=== PATIENT | female | born 1995 | race Caucasian/White ===

== ENCOUNTER 2022-01-10 10:30 | Emergency (ER) | payer OTHER ==
[~2022-01-10] VITALS: Ht 162.6 cm; Wt 81.7 kg
[2022-01-10 11:32] LABS: BASOPHILS ABSOLUTE AUTO 0.06 K/mm3 (0.00-0.23); BASOPHILS PERCENT AUTO 1 % (0-2); EOSINOPHILS ABSOLUTE AUTO 0.13 K/mm3 (0.00-0.68); EOSINOPHILS PERCENT AUTO 2 % (0-6); Hematocrit 36.7 % (33.0-51.0); Hemoglobin 13.2 g/dL (11.5-16.0); IMMATURE GRAN ABSOLUTE AUTO 0.06 K/mm3 (0.00-0.10); IMMATURE GRAN PERCENT AUTO 1 % (0-1); LYMPHOCYTES PERCENT AUTO 24 % (21-46); MONOCYTES ABSOLUTE AUTO 0.75 K/mm3 (0.16-1.47); MONOCYTES PERCENT AUTO 10 % (4-13); Mean Corpuscular HGB 32.5 pg (26.0-34.0); Mean Corpuscular Volume 90 fL (80-100); Mean Platelet Volume 10.8 fL (9.1-12.4); NEUTROPHILS ABSOLUTE AUTO 5.02 K/mm3 (1.96-9.15); NEUTROPHILS PERCENT AUTO 63 % (41-73); Platelet Count 231 K/mm3 (150-400); RDW Coefficient Variation 11.8 % (11.7-14.2); RDW Standard Deviation 39.3 fL (35.1-46.3); Red Blood Cell Count 4.06 M/mm3 (3.80-5.20); White Blood Cell Count 7.92 K/mm3 (4.00-11.30)
[2022-01-10 11:57] LABS: Albumin, Blood 3.9 g/dL (3.4-5.0); Albumin/Globulin Ratio 1.2 (0.8-1.8); Bilirubin, Total 0.6 mg/dL (0.1-1.0); Bun/Creatinine Ratio 13.5 (12.0-20.0); Calcium, Blood 8.6 mg/dL (8.5-10.1); Creatinine, Blood 0.67 mg/dL (0.40-1.00); Globulin, Blood 3.2 g/dL (2.2-4.0); Potassium, Blood 3.9 mmol/L (3.5-5.5); Total Protein, Blood 7.1 g/dL (6.4-8.2)
[2022-01-10] MEDS ORDERED: PRED20 PO (15:19)
[2022-01-10] MEDS ORDERED: Omeprazole20 M1 PO (15:19)
[2022-01-10] MEDS ORDERED: ONDA4ODT MM (15:19)
[2022-01-10] MEDS ORDERED: HYDR1TAB94 PO (15:32)
== END 2022-01-10 15:30 | disposition home or self-care (01) ==
LOC: ER 10:30
PROVIDERS: Physician Assistant
DX: K50.911 Crohn's disease, unspecified, with rectal bleeding (principal); K92.0 Hematemesis
CPT/HCPCS: 80053; 85025; 96374; 99284-25; J2405

== ENCOUNTER 2022-05-28 06:28 | Emergency (ER) | payer OTHER ==
[~2022-05-28] VITALS: Ht 165.1 cm; Wt 117.9 kg
[~2022-05-28 06:28] MED LIST: HYDR1TAB94 PO; ONDA4ODT MM; Omeprazole20 M1 PO; PRED20 PO
[2022-05-28 07:18] LABS: BASOPHILS ABSOLUTE AUTO 0.02 K/mm3 (0.00-0.23); BASOPHILS PERCENT AUTO 0 % (0-2); EOSINOPHILS ABSOLUTE AUTO 0.03 K/mm3 (0.00-0.68); EOSINOPHILS PERCENT AUTO 1 % (0-6); Hematocrit 35.7 % (33.0-51.0); Hemoglobin 13.1 g/dL (11.5-16.0); IMMATURE GRAN ABSOLUTE AUTO 0.04 K/mm3 (0.00-0.10); IMMATURE GRAN PERCENT AUTO 1 % (0-1); LYMPHOCYTES ABSOLUTE AUTO 0.59 K/mm3 (0.84-5.20); LYMPHOCYTES PERCENT AUTO 13 % (21-46); MONOCYTES ABSOLUTE AUTO 0.65 K/mm3 (0.16-1.47); MONOCYTES PERCENT AUTO 14 % (4-13); Mean Corpuscular HGB 33.1 pg (26.0-34.0); Mean Corpuscular HGB Conc 36.7 g/dL (31.5-36.5); Mean Corpuscular Volume 90 fL (80-100); Mean Platelet Volume 10.4 fL (9.1-12.4); NEUTROPHILS ABSOLUTE AUTO 3.33 K/mm3 (1.96-9.15); NEUTROPHILS PERCENT AUTO 72 % (41-73); Platelet Count 228 K/mm3 (150-400); Red Blood Cell Count 3.96 M/mm3 (3.80-5.20); White Blood Cell Count 4.66 K/mm3 (4.00-11.30)
[2022-05-28 07:37] LABS: Albumin, Blood 3.7 g/dL (3.4-5.0); Bilirubin, Total 0.2 mg/dL (0.1-1.0); Bun/Creatinine Ratio 11.1 (12.0-20.0); Calcium, Blood 8.8 mg/dL (8.5-10.1); Creatinine, Blood 0.72 mg/dL (0.40-1.00); Globulin, Blood 3.8 g/dL (2.2-4.0); Potassium, Blood 4.1 mmol/L (3.5-5.5); Total Protein, Blood 7.5 g/dL (6.4-8.2)
[2022-05-28 08:23] LABS: Influenza B, PCR NEGATIVE (NEGATIVE); Resp Syncytial Virus, PCR NEGATIVE (NEGATIVE); SARS-Cov-2 (COVID-19) PCR, MMC NEGATIVE (NEGATIVE)
[2022-05-28 08:25] LABS: Influenza A, PCR POSITIVE (NEGATIVE)
[2022-05-28] MEDS ORDERED: PROM25 PO (10:07)
[2022-05-28] MEDS ORDERED: Tamiflu75 MG PO (10:08)
== END 2022-05-28 10:38 | disposition home or self-care (01) ==
LOC: ER 06:28
PROVIDERS: Student in an Organized Health Care Education/Training Program
DX: J10.1 Influenza due to other identified influenza virus with other respiratory manifestations (principal); Z20.822 Contact with and (suspected) exposure to COVID-19; Z79.899 Other long term (current) drug therapy; Z79.52 Long term (current) use of systemic steroids
CPT/HCPCS: 0241U; 36415; 80053; 83690; 85025; A9270; J1885; J2405; J2550; J7030

== ENCOUNTER → 2023-06-11 | Outpatient (CLI) | payer OTHER ==
[~2023-06-11] MED LIST changes: +PROM25 PO; +Tamiflu75 MG PO
[2023-06-11 17:19] LABS: BASOPHILS ABSOLUTE AUTO 0.09 K/mm3 (0.00-0.23); BASOPHILS PERCENT AUTO 1 % (0-2); EOSINOPHILS ABSOLUTE AUTO 0.22 K/mm3 (0.00-0.68); EOSINOPHILS PERCENT AUTO 3 % (0-6); Hematocrit 38.8 % (33.0-51.0); Hemoglobin 13.3 g/dL (11.5-16.0); IMMATURE GRAN ABSOLUTE AUTO 0.02 K/mm3 (0.00-0.10); IMMATURE GRAN PERCENT AUTO 0 % (0-1); LYMPHOCYTES ABSOLUTE AUTO 2.45 K/mm3 (0.84-5.20); LYMPHOCYTES PERCENT AUTO 32 % (21-46); MONOCYTES ABSOLUTE AUTO 0.64 K/mm3 (0.16-1.47); MONOCYTES PERCENT AUTO 8 % (4-13); Mean Corpuscular HGB Conc 34.3 g/dL (31.5-36.5); Mean Corpuscular Volume 90 fL (80-100); Mean Platelet Volume 10.9 fL (9.1-12.4); NEUTROPHILS ABSOLUTE AUTO 4.34 K/mm3 (1.96-9.15); NEUTROPHILS PERCENT AUTO 56 % (41-73); Platelet Count 257 K/mm3 (150-400); RDW Coefficient Variation 11.4 % (11.7-14.2); RDW Standard Deviation 37.3 fL (35.1-46.3); Red Blood Cell Count 4.29 M/mm3 (3.80-5.20); White Blood Cell Count 7.76 K/mm3 (4.00-11.30)
== END | disposition home or self-care (01) ==
LOC: LAB 15:31 → LAB SHORT 15:31
PROVIDERS: Obstetrics & Gynecology
DX: Z01.812 Encounter for preprocedural laboratory examination (principal)
CPT/HCPCS: 36415; 85025

== ENCOUNTER 2023-06-20 10:46 | Day surgery (SDC) | payer OTHER ==
[~2023-06-20] VITALS: Ht 162.6 cm; Wt 82.2 kg
[2023-06-20] MEDS ORDERED: TRAM50 PO (11:05)
[2023-06-20] MEDS ORDERED: REMIFENTANIL HCL IV (11:07)
[2023-06-20] MEDS ORDERED: RENFLEXIS100 M1 IV (12:32)
--- NOTE | 2023-06-20 13:02 | NUR ---
06/20/23 1302 Luann Alvarado ABDOMINAL AREA PREPPED W/ CHLORAPREP, JOSE AREA PREPPED W/ BETADINE SOLUTION.
[2023-06-20 13:37] VITALS: BP 129/81
== END 2023-06-20 14:39 | disposition home or self-care (01) ==
LOC: ORSCSDS 10:46
PROVIDERS: Obstetrics & Gynecology
PROC: 0UT74ZZ Resection of Bilateral Fallopian Tubes, Percutaneous Endoscopic Approach (ICD-10-PCS; principal; 2023-06-20 12:00)
PROC: 0UPD7HZ Removal of Contraceptive Device from Uterus and Cervix, Via Natural or Artificial Opening (ICD-10-PCS; principal; 2023-06-20 12:00)
DX: Z30.2 Encounter for sterilization (principal); Z30.432 Encounter for removal of intrauterine contraceptive device; F32.9 Major depressive disorder, single episode, unspecified; K50.90 Crohn's disease, unspecified, without complications; E66.9 Obesity, unspecified; Z68.31 Body mass index [BMI] 31.0-31.9, adult; Z79.899 Other long term (current) drug therapy
CPT/HCPCS: 88302; J0171; J1100; J1885; J2250; J2405; J2704; J2765; J2795; J3010

== ENCOUNTER 2023-12-30 01:51 | Day surgery (SDC) | payer OTHER ==
[~2023-12-30 01:51] MED LIST changes: +BUDESONIDE EC3 MG PO; +BUSP15 PO; +CIPR500 PO; +ESCI10 PO; +ESCI20 PO; +Entocort EC 3 mg3 MG PO; +FAMO20 PO; +Flonase 0.05% N16 GM; +HYDCOR2.5C PR; +HYDMOR2 PO; +Hydrocodone-Ap1 EA20 PO; +IBUP800; +IBUP800 PO; +INFLECTRA100 MG IV; +Lialda1.2 GM PO; +MESALAMINE DR400 MG PO; +METR500 PO; +ONDA4 PO; +OXYACE5T PO; +Phenergan25 M1 PO; +Purinethol50 MG GT; +REMIFENTANIL HCL IV; +RENFLEXIS100 M1 IV; +Remicade100 MG IV; +Sulfamethoxazo1 EAC4 PO; +TRAM50 PO; +TRAZ50 PO; +Ultram50 MG PO; +Veetids 500500 MG PO; +Verotin-Gr Cap1 EACH PO; +Vistaril25 MG PO; +Zofran4 MG PO
[2023-12-30] MEDS ORDERED: Ondansetron HCl 2 MG / ML 2ML Vial IV SCH (06:50)
[2023-12-30 14:03] VITALS: BP 123/75
[2023-12-30] MEDS ORDERED: Infliximab-DYYB 400 MG in NS 250 ML IV SCH (14:20)
== END 2023-12-30 16:57 | disposition home or self-care (01) ==
LOC: ATC 01:51
DX: K50.00 Crohn's disease of small intestine without complications (principal); Z79.899 Other long term (current) drug therapy
CPT/HCPCS: 96413; 96415; J7050; Q5103

== ENCOUNTER 2024-02-17 00:40 | Day surgery (SDC) | payer OTHER ==
[~2024-02-17] VITALS: Wt 85.1 kg
[2024-02-17 14:03] VITALS: BP 123/92
[2024-02-17] MEDS ORDERED: Ondansetron HCl 2 MG / ML 2ML Vial IV ONE (14:15)
[2024-02-17] MEDS ORDERED: Infliximab-DYYB 400 MG in NS 250 ML IV SCH (14:15)
== END 2024-02-17 16:34 | disposition home or self-care (01) ==
LOC: ATC 00:40
DX: K50.00 Crohn's disease of small intestine without complications (principal)
CPT/HCPCS: 96375; 96413; 96415; J2405; J7050; Q5103

== ENCOUNTER 2024-04-06 02:06 | Day surgery (SDC) | payer OTHER ==
[~2024-04-06] VITALS: Wt 86.2 kg
[2024-04-06] MEDS ORDERED: Acetaminophen 325 MG TABLET PO PRN (07:25)
[2024-04-06] MEDS ORDERED: LORazepam 1 MG Tab PO SCH (07:25)
[2024-04-06 14:11] VITALS: BP 118/90
[2024-04-06] MEDS ORDERED: MONT10T PO (14:28)
[2024-04-06] MEDS ORDERED: Infliximab-DYYB 400 MG in NS 250 ML IV SCH (14:35)
== END 2024-04-06 17:00 | disposition home or self-care (01) ==
LOC: ATC 02:06
DX: K50.00 Crohn's disease of small intestine without complications (principal); F41.0 Panic disorder [episodic paroxysmal anxiety]; Z79.899 Other long term (current) drug therapy
CPT/HCPCS: 96413; 96415; J7050; Q5103

== ENCOUNTER 2024-05-25 01:36 | Day surgery (SDC) | payer OTHER ==
[~2024-05-25 01:36] MED LIST changes: +MONT10T PO
[2024-05-25 14:07] VITALS: BP 124/56
[2024-05-25] MEDS ORDERED: Infliximab-DYYB 450 MG in NS 250 ML IV SCH (14:20)
== END 2024-05-25 17:04 | disposition home or self-care (01) ==
LOC: ATC 01:36
DX: K50.00 Crohn's disease of small intestine without complications (principal); Z79.899 Other long term (current) drug therapy
CPT/HCPCS: 96413; 96415; J7050; Q5103

== ENCOUNTER 2024-07-13 03:39 | Day surgery (SDC) | payer OTHER ==
[2024-07-13 14:08] VITALS: BP 117/80; BP 117/96
[2024-07-13] MEDS ORDERED: Infliximab-DYYB 400 MG in NS 250 ML IV SCH (14:15)
== END 2024-07-13 17:05 | disposition home or self-care (01) ==
LOC: ATC 03:39
DX: K50.00 Crohn's disease of small intestine without complications (principal); Z79.899 Other long term (current) drug therapy
CPT/HCPCS: 96413; 96415; J7050; Q5103

== ENCOUNTER 2024-09-03 03:45 | Day surgery (SDC) | payer OTHER ==
[~2024-09-03] VITALS: Wt 86.4 kg
[2024-09-03 15:28] VITALS: BP 123/78
[2024-09-03] MEDS ORDERED: Infliximab-DYYB 400 MG in NS 250 ML IV SCH (15:45)
== END 2024-09-03 18:06 | disposition home or self-care (01) ==
LOC: ATC 03:45
DX: K50.00 Crohn's disease of small intestine without complications (principal); Z79.899 Other long term (current) drug therapy
CPT/HCPCS: 96413; 96415; J7050; Q5103

== ENCOUNTER → 2024-09-30 | Outpatient (CLI) | payer OTHER | END | disposition home or self-care (01) | LOC: LAB 10:08 → LAB SHORT 10:08 | PROVIDERS: Obstetrics & Gynecology | DX: Z01.419 Encounter for gynecological examination (general) (routine) without abnormal findings (principal) | CPT/HCPCS: G0123 ==

== ENCOUNTER 2024-11-02 04:52 | Day surgery (SDC) | payer OTHER ==
[~2024-11-02] VITALS: Wt 85.9 kg
[2024-11-02] MEDS ORDERED: Acetaminophen 325 MG TABLET PO SCH (07:10)
[2024-11-02 15:02] VITALS: BP 128/78
[2024-11-02] MEDS ORDERED: Infliximab-DYYB 400 MG in NS 250 ML IV SCH (15:20)
--- NOTE | 2024-11-02 16:02 | NUR ---
Pt declines pre meds.
[2024-11-02 16:34] LABS: BASOPHILS ABSOLUTE AUTO 0.06 K/mm3 (0.00-0.23); BASOPHILS PERCENT AUTO 1 % (0-2); EOSINOPHILS ABSOLUTE AUTO 0.24 K/mm3 (0.00-0.68); EOSINOPHILS PERCENT AUTO 3 % (0-6); Hematocrit 38.8 % (33.0-51.0); Hemoglobin 13.6 g/dL (11.5-16.0); IMMATURE GRAN ABSOLUTE AUTO 0.03 K/mm3 (0.00-0.10); IMMATURE GRAN PERCENT AUTO 0 % (0-1); LYMPHOCYTES ABSOLUTE AUTO 2.49 K/mm3 (0.84-5.20); LYMPHOCYTES PERCENT AUTO 34 % (21-46); MONOCYTES ABSOLUTE AUTO 0.68 K/mm3 (0.16-1.47); MONOCYTES PERCENT AUTO 9 % (4-13); Mean Corpuscular HGB 31.9 pg (26.0-34.0); Mean Corpuscular HGB Conc 35.1 g/dL (31.5-36.5); Mean Corpuscular Volume 91 fL (80-100); Mean Platelet Volume 11.4 fL (9.1-12.4); NEUTROPHILS ABSOLUTE AUTO 3.93 K/mm3 (1.96-9.15); NEUTROPHILS PERCENT AUTO 53 % (41-73); Platelet Count 219 K/mm3 (150-400); RDW Coefficient Variation 11.8 % (11.7-14.2); RDW Standard Deviation 38.8 fL (35.1-46.3); Red Blood Cell Count 4.26 M/mm3 (3.80-5.20); White Blood Cell Count 7.43 K/mm3 (4.00-11.30)
[2024-11-02 16:54] LABS: Albumin, Blood 4.2 g/dL (3.4-5.0); Albumin/Globulin Ratio 1.3 (0.8-1.8); Bilirubin, Total 0.6 mg/dL (0.1-1.0); Bun/Creatinine Ratio 10.6 (12.0-20.0); Calcium, Blood 9.4 mg/dL (8.5-10.1); Creatinine, Blood 0.76 mg/dL (0.40-1.00); Globulin, Blood 3.2 g/dL (2.2-4.0); Potassium, Blood 3.4 mmol/L (3.5-5.5); Total Protein, Blood 7.4 g/dL (6.4-8.2)
== END 2024-11-02 18:07 | disposition home or self-care (01) ==
LOC: ATC 04:52
PROVIDERS: Internal Medicine Gastroenterology
DX: K50.00 Crohn's disease of small intestine without complications (principal)
CPT/HCPCS: 80053; 85025; 96413; 96415; J7050; Q5103

== ENCOUNTER 2024-12-21 00:55 | Day surgery (SDC) | payer OTHER ==
[2024-12-21] MEDS ORDERED: Infliximab-DYYB 400 MG in NS 250 ML IV SCH (15:20)
[2024-12-21 15:22] VITALS: BP 120/84
== END 2024-12-21 17:53 | disposition home or self-care (01) ==
LOC: ATC 00:55
DX: K50.00 Crohn's disease of small intestine without complications (principal); Z79.899 Other long term (current) drug therapy
CPT/HCPCS: 96413; 96415; J7050; Q5103

== ENCOUNTER → 2024-12-23 | Outpatient (CLI) | payer OTHER ==
[2024-12-23 15:02] LABS: Bacterial Vaginosis PCR Negative (NEGATIVE); Candida Group, PCR NOT DETECTED (NOT DETECT); Candida glabrata-krusei, PCR NOT DETECTED (NOT DETECT)
== END ==
LOC: LAB 10:35 → LAB SHORT 10:35
PROVIDERS: Obstetrics & Gynecology
DX: N76.0 Acute vaginitis (principal)
CPT/HCPCS: 81515

== ENCOUNTER 2025-02-08 01:38 | Day surgery (SDC) | payer OTHER ==
[~2025-02-08] VITALS: Wt 80.2 kg
[2025-02-08 15:10] VITALS: BP 127/77
== END 2025-02-08 17:49 | disposition home or self-care (01) ==
LOC: ATC 01:38
DX: K50.00 Crohn's disease of small intestine without complications (principal); Z79.620 Long term (current) use of immunosuppressive biologic
CPT/HCPCS: 96413; 96415; J7050; Q5103

== ENCOUNTER → 2025-05-03 | Outpatient (CLI) | payer OTHER ==
[2025-05-05 22:00] LABS: CALPROTECTIN,FECAL <5 ug/g (<=49)
== END ==
LOC: LAB 20:00 → LAB SHORT 20:00 → EDSTATUS 04-30 13:20 → LAB FUT 04-30 13:20
PROVIDERS: Internal Medicine Gastroenterology
DX: K59.00 Constipation, unspecified (principal); K50.00 Crohn's disease of small intestine without complications; Z79.899 Other long term (current) drug therapy
CPT/HCPCS: 83993

== ENCOUNTER 2025-05-17 00:23 | Day surgery (SDC) | payer OTHER ==
[~2025-05-17] VITALS: Wt 80.9 kg
[2025-05-17 15:03] VITALS: BP 120/72
== END 2025-05-17 17:43 | disposition home or self-care (01) ==
LOC: ATC 00:23
DX: K50.00 Crohn's disease of small intestine without complications (principal)
CPT/HCPCS: 96413; 96415; J7050; Q5103